=== PATIENT | male | born 1985 | race Caucasian/White ===

== ENCOUNTER 2017-05-21 23:28 | Emergency (ER) | payer SELFPAY | END 2017-05-22 04:24 | disposition left against medical advice (07) | LOC: FTE 23:28 | DX: Z53.21 Procedure and treatment not carried out due to patient leaving prior to being seen by health care provider (principal) ==

== ENCOUNTER 2017-10-04 02:35 | Emergency (ER) | payer OTHER ==
[2017-10-04] MEDS: IBUPROFEN 800 MG TAB PO (03:56)
== END 2017-10-04 04:13 | disposition home or self-care (01) ==
LOC: E/R 02:35
DX: S70.02XA Contusion of left hip, initial encounter (principal); S20.229A Contusion of unspecified back wall of thorax, initial encounter; R40.2142 Coma scale, eyes open, spontaneous, at arrival to emergency department; R40.2362 Coma scale, best motor response, obeys commands, at arrival to emergency department; R40.2252 Coma scale, best verbal response, oriented, at arrival to emergency department; F17.210 Nicotine dependence, cigarettes, uncomplicated; Y04.0XXA Assault by unarmed brawl or fight, initial encounter; Y92.9 Unspecified place or not applicable
CPT/HCPCS: 99283